=== PATIENT | male | born 1930 | race Caucasian/White ===

== ENCOUNTER 2017-12-22 18:14 | Emergency (ER) | payer MEDICARE, BC ==
[2017-12-22] MEDS ORDERED: ALBUTEROL SULFATE (0.083%) 2.5 MG/3 ML NEB INH ONE (18:41)
--- NOTE | 2017-12-22 18:47 | Emergency Department Record ---
History of Present Illness - General Chief Complaint: Cough Stated Complaint: PRODUCTIVE COUGH Time Seen by Provider: 12/22/17 18:27 Source: Patient Mode of Arrival: Ambulatory Limitations: No limitations - History of Present Illness Initial Comments: pt was taking 8 vitamins this am when he thought he aspirated one. he has been coughing ever since and having difficulty breathing MD Complaint: Shortness of breath Onset/Timin Severity: Moderate Severity scale (1-10): 1 Consistency: Constant Improves With: Nothing Worsens With: Coughing, Inspiration Known History Of: Recurrent pneumonia Context: Choking/aspiration - Related Data Allergies Allergy/AdvReac Type Severity Reaction Status Date / Time iodine Allergy Unknown HYPERSENSIT Unverified 12/22/17 18:33 [facility] Latex Allergy: Allergy Unknown HYPERSENSIT Uncoded 12/22/17 18:33 [facility] Travel Screening - Travel/Exposure Within Last 30 Days Have you traveled within the last 30 days?: No - Travel/Exposure Within Last Year Have you traveled outside the [place] in the last year?: No - Additonal Travel Details Have you been exposed to anyone with a communicable illness?: No - Travel Symptoms Symptom Screening: None - Additional Travel Comment Additional Travel/Exposure Comment: Pt states when he took all of his medications this am around 9 am her choked on the water. Pt thinks he aspirated on the pills and water. Review of Systems Reviewed: No additional complaints except as noted below Constitutional: Reports: As per HPI. Denies: Chills, Fever, Malaise, Night sweats, Weakness, Weight change Eyes: Reports: As per HPI. Denies: Eye discharge, Eye pain, Photophobia, Vision change ENT: Reports: As per HPI. Denies: Congestion, Dental pain, Ear pain, Epistaxis , Hearing loss, Throat pain Respiratory: Reports: As per HPI, Cough, Dyspnea. Denies: Hemoptysis, Stridor, Wheezes Cardiovascular: Reports: As per HPI. Denies: Arrhythmia, Chest pain, Dyspnea on exertion, Edema, Murmurs, Orthopnea, Palpitations, Paroxysmal nocturnal dyspnea, Rheumatic Fever, Syncope Endocrine: Reports: As per HPI. Denies: Fatigue, Heat or cold intolerance, Polydipsia, Polyuria Gastrointestinal: Reports: As per HPI. Denies: Abdominal pain, Constipation, Diarrhea, Hematemesis, Hematochezia, Melena, Nausea, Vomiting Genitourinary: Reports: As per HPI. Denies: Dysuria, Frequency, Hematuria, Incontinence, Retention, Testicular pain, Testicular mass, Urgency Musculoskeletal: Reports: As per HPI. Denies: Arthralgia, Back pain, Gout, Joint swelling, Myalgia, Neck pain Skin: Reports: As per HPI. Denies: Bruising, Change in color, Change in hair/ nails, Lesions, Pruritus, Rash Neurological: Reports: As per HPI. Denies: Abnormal gait, Confusion, Headache, Numbness, Paresthesias, Seizure, Tingling, Tremors, Vertigo, Weakness Psychiatric: Reports: As per HPI. Denies: Anxiety, Auditory hallucinations, Depression, Homicidal thoughts, Suicidal thoughts, Visual hallucinations Hematological/Lymphatic: Reports: As per HPI. Denies: Anemia, Blood Clots, Easy bleeding, Easy bruising, Swollen glands Past Medical History - SOCIAL HISTORY Smoking Status: Former smoker Alcohol Use: None Drug Use: None - RESPIRATORY Hx Respiratory Disorders: Yes Hx Pneumonia: Yes Hx Sleep Apnea: Yes Hx of CPAP: Yes - CARDIOVASCULAR Hx Cardio Disorders: No - NEURO Hx Neuro Disorders: No - GI Hx GI Disorders: No - Hx Genitourinary Disorders: Yes Hx Kidney Stones: Yes Hx Prostate Problems: Yes - ENDOCRINE Hx Endocrine Disorders: No - MUSCULOSKELETAL Hx Musculoskeletal Disorders: Yes Hx Arthritis: Yes Hx Back Injury: Yes (pinched nerve, 3 herniated disk) - PSYCH Hx Psych Problems: No - HEMATOLOGY/ONCOLOGY Hx Hematology/Oncology Disorders: No Family Medical History Any Significant Family History?: Yes Family Hx Comment (NOT TO BE USED IN PLACE OF ITEMS BELOW): low blood sugar in family Hx Cancer: Mother Hx Heart Disease: Father Physical Exam - General General Appearance: Alert, Oriented x3, Cooperative, Mild distress - Head Head exam: Normal inspection - Eye Eye exam: Normal appearance, PERRL, EOMI Pupils: Normal accommodation - ENT ENT exam: Normal exam, Mucous membranes moist, Normal external ear exam, Normal orophraynx Ear exam: Normal external inspection. negative: External canal tenderness Nasal Exam: Normal inspection. negative: Discharge, Sinus tenderness Mouth exam: Normal external inspection, Tongue normal Teeth exam: Normal inspection. negative: Dental caries Throat exam: Normal inspection. negative: Tonsillar erythema, Tonsillar exudate - Neck Neck exam: Normal inspection, Full ROM. negative: Tenderness - Respiratory Respiratory exam: Normal lung sounds bilaterally. negative: Respiratory distress - Cardiovascular Cardiovascular Exam: Regular rate, Normal rhythm, Normal heart sounds - GI/Abdominal GI/Abdominal exam: Soft, Normal bowel sounds. negative: Tenderness - Rectal Rectal exam: Deferred - exam: Deferred - Extremities Extremities exam: Normal inspection, Full ROM, Normal capillary refill. negative: Tenderness - Back Back exam: Reports: Normal inspection, Full ROM. Denies: Muscle spasm, Rash noted, Tenderness - Neurological Neurological exam: Alert, CN II-XII intact, Normal gait, Oriented X3 - Psychiatric Psychiatric exam: Normal affect, Normal mood - Skin Skin exam: Dry, Intact, Normal color, Warm Course Vital Signs 12/22/17 18:20 Temperature 97.3 F L Pulse Rate 83 Respiratory 20 Rate Blood Pressure 127/92 Pulse Ox 99 - Reevaluation(s) Reevaluation #1: 12/22/17 21:17 pt feels much better Medical Decision Making - Lab Data Result diagrams: 12/22/17 18:55 12/22/17 18:55 Disposition Disposition: Discharge Clinical Impression: Choking episode Aspiration into respiratory tract Qualifiers: Encounter type: initial encounter Qualified Code(s): T17.908A - Unspecified foreign body in respiratory tract, part unspecified causing other injury, initial encounter Disposition: Home, Self-Care Condition: (1) Good Instructions: Aspiration Precautions (ED) Additional Instructions: follow up with family doctor. return sooner if worse. Forms: Patient Portal Access Quality - Quality Measures Quality Measures: N/A - Blood Pressure Screening Does Patient Have Any of the Following: No Blood Pressure Classification: Hypertensive Reading Systolic Measurement: 127 Diastolic Measurement: 92 Screening for High Blood Pressure: < Pre-Hypertensive BP, F/U Documented > [ G8950] Pre-Hypertensive Follow-up Interventions: Follow-up with rescreen every year.
[2017-12-22 19:05] LABS: BASO % 0.4 % (0-6); EOS % 2.7 % (0-6); GRAN % 65.9 % (47-80); HEMATOCRIT 38.9 % (42.0-52.0); HEMOGLOBIN 12.1 gm/dl (14.0-18.0); LYMPH % 19.7 % (16-45); MEAN CELL VOLUME 97.7 fl (81-97); MEAN CORPUSCULAR HEMOGLOBIN 30.4 pg (27-33); MEAN CORPUSCULAR HGB CONC 31.1 g/dl (32-36); MEAN PLATELET VOLUME 9.4 fl (7.4-10.4); MONO % 11.3 % (0-9); PLATELET COUNT 226 K/uL (130-400); RED BLOOD COUNT 3.98 M/uL (4.40-5.70); RED CELL DISTRIBUTION WIDTH 13.5 % (11.5-14.5); WHITE BLOOD COUNT W/O DIFF 5.1 K/uL (4.2-12.2)
[2017-12-22 19:14] LABS: BLOOD UREA NITROGEN 29 mg/dL (8-23); CREATININE 0.9 mg/dL (0.7-1.2); EST GLOMERULAR FILTRATION RATE > 60 mL/min
[2017-12-22 19:17] LABS: GLUCOSE,RANDOM 132 mg/dL (74-109)
[2017-12-22] MEDS ORDERED: 0.9 % SODIUM CHLORIDE 1,000 ML BAG IV ONE (19:46)
--- NOTE | 2017-12-23 22:54 | CT SCAN REPORT ---
EXAM: CT SCAN CHEST W CONTRAST HISTORY: COUGH. TECHNIQUE: Sequential axial images were obtained from the thoracic inlet through the bilateral adrenal glands after intravenous administration of 100 mL of Omnipaque-300 contrast material. FINDINGS: The mediastinal vasculature enhances normally. There are mildly prominent mediastinal lymph nodes. There is underlying emphysema. There is a calcified granuloma in the left lower lobe. No pleural effusion is appreciated. There are nonspecific low-density lesions in the left lobe of the liver. There are nonspecific cystic lesions in both kidneys. IMPRESSION: 1. CALCIFIED GRANULOMA LEFT LOWER LOBE. 2. MILDLY PROMINENT MEDIASTINAL LYMPH NODES. NO INFILTRATE. MILD UNDERLYING EMPHYSEMA. JOB NUMBER: [id number] [facility]
== END 2017-12-22 21:31 | disposition home or self-care (01) ==
LOC: ER 18:14
DX: T17.908A Unspecified foreign body in respiratory tract, part unspecified causing other injury, initial encounter (principal); R09.89 Other specified symptoms and signs involving the circulatory and respiratory systems; R05 Cough; R06.02 Shortness of breath; F17.210 Nicotine dependence, cigarettes, uncomplicated
CPT/HCPCS: 99284 ×2; 96360; 85025; 80048; 71260; 94640; Q9967; J7030; J7613

== ENCOUNTER 2018-03-21 10:39 | Emergency (ER) | payer MEDICARE, BC ==
--- NOTE | 2018-03-21 10:57 | Emergency Department Record ---
History of Present Illness - General Chief complaint: Lower Extremity Pain Stated complaint: HIP PAIN Time Seen by Provider: 03/21/18 10:49 Source: Patient Mode of Arrival: Ambulatory Limitations: No limitations - History of Present Illness Initial comments: The patient is here due to R hip and pelvis pain for 2 weeks. He fell almost 2 weeks ago while mowing the yard and landed on his R buttock. Since he has had R groin and buttock pain. The patient is able to ambulate with pain and it seems to be getting mildly worse. He denies any SAGASTUME, neck pain, CP, SOB or AP. MD Complaint: Joint pain Onset/Timin -: Week(s) Severity scale (1-10): 6 Quality: Aching Consistency: Constant Improves with: Immobilization Worsens with: Walking, Weight bearing Associated Symptoms: Denies other symptoms - Related Data Previous Rx's Medication Instructions Recorded Lidocaine Patch [Lidoderm] 1 ea TOP DAILY #10 patch 03/21/18 Allergies Allergy/AdvReac Type Severity Reaction Status Date / Time iodine Allergy Unknown HYPERSENSIT Verified 03/21/18 10:49 [facility] Travel Screening - Travel/Exposure Within Last 30 Days Have you traveled within the last 30 days?: No Review of Systems Constitutional: Denies: Chills, Fever Past Medical History - SOCIAL HISTORY Smoking Status: Former smoker Alcohol Use: None Drug Use: None - RESPIRATORY Hx Respiratory Disorders: Yes Hx Pneumonia: Yes Hx Sleep Apnea: Yes Hx of CPAP: Yes - CARDIOVASCULAR Hx Cardio Disorders: No - NEURO Hx Neuro Disorders: No - GI Hx GI Disorders: No - Hx Genitourinary Disorders: Yes Hx Kidney Stones: Yes Hx Prostate Problems: Yes - ENDOCRINE Hx Endocrine Disorders: No - MUSCULOSKELETAL Hx Musculoskeletal Disorders: Yes Hx Arthritis: Yes Hx Back Injury: Yes (pinched nerve, 3 herniated disk) - PSYCH Hx Psych Problems: No - HEMATOLOGY/ONCOLOGY Hx Hematology/Oncology Disorders: No Family Medical History Any Significant Family History?: Yes Family Hx Comment (NOT TO BE USED IN PLACE OF ITEMS BELOW): low blood sugar in family Hx Cancer: Mother Hx Heart Disease: Father Physical Exam - General General Appearance: Alert, Oriented x3, Cooperative, No acute distress - Head Head exam: Atraumatic, Normocephalic, Normal inspection - Eye Eye exam: Normal appearance, PERRL - Respiratory Respiratory exam: Normal lung sounds bilaterally. negative: Respiratory distress - Cardiovascular Cardiovascular Exam: Regular rate, Normal rhythm, Normal heart sounds - GI/Abdominal GI/Abdominal exam: Soft, Normal bowel sounds. negative: Tenderness - Extremities Extremities exam: Normal inspection, Normal capillary refill, Tenderness (There is mild R lateral hip pain with palpation.), Other (The R leg is NVI with normal distal pulses.). negative: Calf tenderness, Full ROM (There is decreased full ROM of the R hip due to pain.), Joint swelling, Pedal edema Course Vital Signs 03/21/18 10:45 Temperature 97.4 F L Pulse Rate 70 Respiratory 18 Rate Blood Pressure 112/63 Pulse Ox 98 - Reevaluation(s) Reevaluation #1: The patient is doing OK at this time. I did discuss the neg xrays with the patient and family and the need for F/U. We will prescribe Lidoderm patches for the patient. He was up walking at discharge with no problems or limping. 03/21/18 12:06 03/21/18 13:22 Medical Decision Making - Data Complexity MDM Data: X-Ray Ordered and/or Reviewed - Radiology Data Radiology results: Report reviewed (R hip: Neg per Rad for any acute changes.) Disposition Disposition: Discharge Clinical Impression: Hip pain, right Disposition: Home, Self-Care Condition: (2) Stable Instructions: Hip Pain (ED) Additional Instructions: Please use Tylenol for pain every 6 hours and use the Lidoderm as directed. Please see your family doctor next week for recheck. Return to the ER for any worsening symptoms and do not mow the lawn or go in the basement for a week. Prescriptions: Lidocaine Patch [Lidoderm] 1 ea TOP DAILY #10 patch Forms: Patient Portal Access Time of Disposition: 12:09 Quality - Quality Measures Quality Measures: N/A - Blood Pressure Screening View Details: Yes Does Patient Have Any of the Following: No Blood Pressure Classification: Normal BP Reading Systolic Measurement: 112 Diastolic Measurement: 63 Screening for High Blood Pressure: < Normal BP, F/U Not Required > [G8783]
[2018-03-21] MEDS ORDERED: LIDOCAINE 5% PATCH TOP ONE (12:05)
--- NOTE | 2018-03-23 21:04 | RADIOLOGY REPORT ---
EXAM: HIP,UNILAT, 2-3 VIEW RIGHT HISTORY: PATIENT FELL TWO WEEKS AGO WITH RIGHT HIP PAIN. TECHNIQUE: AP pelvis, AP lateral right hip. COMPARISON: No prior pelvis or right hip series. ENCOUNTER: Initial. FINDINGS: There is mild degenerative arthritis right hip. No definite fracture or dislocation of the right hip evident. Diffuse osteopenia consistent with osteoporosis. Advanced degenerative arthritis left hip. Prominent degenerative change lower lumbar spine as well, particularly on the left. IMPRESSION: 1. OSTEOPOROSIS. 2. MILD DEGENERATIVE ARTHRITIS RIGHT HIP. MORE SO LEFT HIP. 3. NO FRACTURE OF THE RIGHT HIP EVIDENT. 4. DEGENERATIVE CHANGE LOWER LUMBAR SPINE WELL. JOB NUMBER: [id number] [facility]
== END 2018-03-21 12:32 | disposition home or self-care (01) ==
LOC: ER 10:39
DX: G89.11 Acute pain due to trauma (principal); M25.551 Pain in right hip; W18.30XA Fall on same level, unspecified, initial encounter; Y93.H9 Activity, other involving exterior property and land maintenance, building and construction; Z87.891 Personal history of nicotine dependence
CPT/HCPCS: 99283

== ENCOUNTER 2018-10-02 23:53 | Emergency (ER) | payer MEDICARE, BC ==
[2018-10-03] MEDS ORDERED: 0.9 % SODIUM CHLORIDE 1000ML 500 ML IV SCH (00:15)
[2018-10-03] MEDS ORDERED: ONDANSETRON HCL IV 4 MG/2 ML VIAL IVP ONE (00:15)
[2018-10-03] MEDS ORDERED: FENTANYL PF 100MCG/2ML VIAL IVP ONE (00:15)
[2018-10-03 00:25] LABS: HEMATOCRIT 37.8 % (42.0-52.0); HEMOGLOBIN 12.1 gm/dl (14.0-18.0); MEAN CELL VOLUME 97.4 fl (81-97); MEAN CORPUSCULAR HEMOGLOBIN 31.1 pg (27-33); MEAN PLATELET VOLUME 9.2 fl (7.4-10.4); PLATELET COUNT 224 K/uL (130-400); RED BLOOD COUNT 3.88 M/uL (4.40-5.70); RED CELL DISTRIBUTION WIDTH 13.4 % (11.5-14.5); WHITE BLOOD COUNT W/O DIFF 8.1 K/uL (4.2-12.2)
--- NOTE | 2018-10-03 00:34 | Emergency Department Record ---
History of Present Illness - General Chief Complaint: Abdominal Pain Stated Complaint: ABDOMINAL PAIN Time Seen by Provider: 10/03/18 00:11 Source: Patient Mode of Arrival: Ambulatory Limitations: No limitations - History of Present Illness Initial Comments: 88 yo male presents to ED for evaluation of right sided abdominal pain symptoms that began approximately 3 hours ago. Patient reports simialr symptoms several weeks ago that resolved earlier. Patient denies fevers, chills, or vomiting symptoms. Patient denies previous anu or appendectomy. Patient denies loose stools or blood in the stool. Daughter denies health problems other than HTN. MD Complaint: Abdominal pain Onset/Timin -: Hour(s) Location: RLQ Radiation: None Migration to: No migration Severity: Severe Severity scale (1-10): 8 Quality: Aching Consistency: Constant Improves With: Nothing Worsens With: Nothing Associated Symptoms: Denies other symptoms - Related Data Home Medications Medication Instructions Recorded Confirmed Last Taken Donepezil HCl 5 mg PO DAILY 10/03/18 10/03/18 10/02/18 Ketoconazole 1 ml TD DAILY 10/03/18 10/03/18 10/02/18 Allergies Allergy/AdvReac Type Severity Reaction Status Date / Time iodine Allergy Unknown HYPERSENSIT Verified 03/21/18 10:49 [facility] Travel Screening - Travel/Exposure Within Last 30 Days Have you traveled within the last 30 days?: No Review of Systems Constitutional: Denies: Chills, Fever, Malaise, Night sweats Eyes: Denies: Eye discharge, Eye pain ENT: Denies: Congestion, Ear pain, Epistaxis Respiratory: Denies: Cough, Dyspnea Cardiovascular: Denies: Chest pain, Dyspnea on exertion Endocrine: Denies: Fatigue, Heat or cold intolerance Gastrointestinal: Reports: Abdominal pain. Denies: Nausea, Vomiting Genitourinary: Denies: Incontinence, Retention Musculoskeletal: Denies: Arthralgia, Back pain, Gout, Joint swelling Skin: Denies: Bruising, Change in color Neurological: Denies: Abnormal gait, Confusion, Headache, Seizure Psychiatric: Denies: Anxiety Hematological/Lymphatic: Denies: Anemia, Blood Clots Past Medical History - SOCIAL HISTORY Smoking Status: Former smoker Alcohol Use: None Drug Use: None - RESPIRATORY Hx Respiratory Disorders: Yes Hx Pneumonia: Yes Hx Sleep Apnea: Yes Hx of CPAP: Yes - CARDIOVASCULAR Hx Cardio Disorders: No - NEURO Hx Neuro Disorders: Yes Hx Dementia: Yes - GI Hx GI Disorders: No - Hx Genitourinary Disorders: Yes Hx Kidney Stones: Yes Hx Prostate Problems: Yes - ENDOCRINE Hx Endocrine Disorders: No - MUSCULOSKELETAL Hx Musculoskeletal Disorders: Yes Hx Arthritis: Yes Hx Back Injury: Yes (pinched nerve, 3 herniated disk) - PSYCH Hx Psych Problems: No - HEMATOLOGY/ONCOLOGY Hx Hematology/Oncology Disorders: No Family Medical History Any Significant Family History?: Yes Family Hx Comment (NOT TO BE USED IN PLACE OF ITEMS BELOW): low blood sugar in family Hx Cancer: Mother Hx Heart Disease: Father Physical Exam - General General Appearance: Alert, Oriented x3, Cooperative, Mild distress Limitations: No limitations - Head Head exam: Atraumatic, Normocephalic, Normal inspection Head exam detail: negative: Abrasion, Contusion, Ogden's sign, General tenderness, Hematoma, Laceration - Eye Eye exam: Normal appearance. negative: Conjunctival injection, Periorbital swelling, Periorbital tenderness, Scleral icterus - ENT Ear exam: negative: Auricular hematoma, Auricular trauma Nasal Exam: negative: Active bleeding, Discharge, Dried blood, Foreign body Mouth exam: negative: Drooling, Laceration, Tongue elevation - Neck Neck exam: Normal inspection. negative: Meningismus, Tenderness - Respiratory Respiratory exam: Normal lung sounds bilaterally. negative: Rales, Respiratory distress, Rhonchi, Stridor - Cardiovascular Cardiovascular Exam: Regular rate, Normal rhythm, Normal heart sounds - GI/Abdominal GI/Abdominal exam: Soft, Tenderness (TTP RUQ, RLQ on examination, no guarding or peritoneal signs are present.). negative: Rebound, Rigid - Rectal Rectal exam: Deferred - exam: Deferred - Extremities Extremities exam: Normal inspection. negative: Pedal edema, Tenderness - Back Back exam: Denies: CVA tenderness (R), CVA tenderness (L) - Neurological Neurological exam: Alert, Normal gait, Oriented X3 - Psychiatric Psychiatric exam: Normal affect, Normal mood - Skin Skin exam: Normal color. negative: Abrasion Type of lesion: negative: abrasion Course Vital Signs 10/03/18 00:02 Temperature 97.7 F Pulse Rate [ 56 L Pulse Ox Probe] Respiratory 20 Rate Blood Pressure 124/64 [Left Arm] Pulse Ox 94 L - Reevaluation(s) Reevaluation #1: 10/03/18 00:47 Laboratory studies were reviewed: Hgb 12.1 LA 1.8 UA pending. Labs are otherwise grossly unremarkable for an acute process. Reevaluation #2: 10/03/18 01:36 Patient is back from CT imaging, reports improvement in his pain symptoms. Patient has been unable to urinate since arriving to the ED, will try to obtain UA in 20-30 minutes. Reevaluation #3: 10/03/18 01:58 CT Abdomen and Pelvis: 6 mm stone distal right ureter with resultant moderate right sided hydronephrosis. Calicified pleural plaque left lung base. Enlarged prostate measuring 5.5 cm in diameter. Diverticulosis. Trace FF. Moderate aortic-iliac athersclerotic disease. Reevaluation #4: 10/03/18 02:10 UA reviewed, no evidence for infection. Following discussion with the patient and his daughter, would prefer transfer to [facility] for urologic evaluation. Dr. Izquierdo paged for consultation. 10/03/18 02:12 Case was discussed with Dr. Izquierdo, will accept transfer for further evaluation. Patient and his daughter were updated on the plan of care. Medical Decision Making - Lab Data Result diagrams: 10/03/18 00:10 10/03/18 00:10 Disposition Disposition: Transfer Clinical Impression: Hydronephrosis with obstructing calculus Disposition: Acute Care Hospital Transfer Transfer To: [facility] Reason For Transfer: Urologic consultation, pain control Accepting Physician: Timbo Time Discussed w/Accepting Physician: 02:13 Condition: (2) Stable Forms: Patient Portal Access Time of Disposition: 02:13 Quality - Quality Measures Quality Measures: N/A - Blood Pressure Screening Does Patient Have Any of the Following: No Blood Pressure Classification: Pre-Hypertensive BP Reading Systolic Measurement: 134 Diastolic Measurement: 68 Screening for High Blood Pressure: < Pre-Hypertensive BP, F/U Documented > [ G8950] Pre-Hypertensive Follow-up Interventions: Referral to alternative/primary care provider.
[2018-10-03 00:37] LABS: BLOOD UREA NITROGEN 26 mg/dL (8-23); CREATININE 0.9 mg/dL (0.7-1.2); EST GLOMERULAR FILTRATION RATE > 60 mL/min
[2018-10-03 00:38] LABS: TOTAL PROTEIN 6.7 g/dL (6.6-8.7)
[2018-10-03 00:40] LABS: GLUCOSE,RANDOM 126 mg/dL (74-109)
[2018-10-03 00:42] LABS: ALT/SGPT 13 U/L (<41)
[2018-10-03 00:43] LABS: ALB/GLOB RATIO 1.2 (1.1-1.8); ALBUMIN 3.6 g/dL (4.0-5.0); ALKALINE PHOSPHATASE 94 U/L (40-129); AST/SGOT 27 U/L (10.0-50.0)
[2018-10-03 01:55] LABS: URINE APPEARANCE CLEAR; URINE BILIRUBIN NEGATIVE (NEGATIVE); URINE BLOOD LARGE (NEGATIVE); URINE COLOR YELLOW; URINE GLUCOSE (UA) NEGATIVE (NEGATIVE); URINE KETONE TRACE (NEGATIVE); URINE LEUKOCYTE ESTERASE NEGATIVE (NEGATIVE); URINE NITRITE NEGATIVE (NEGATIVE); URINE PROTEIN NEGATIVE (NEGATIVE); URINE UROBILINOGEN 0.2 E.U./dL (0.20 - 1.00)
[2018-10-03 02:02] LABS: URINE WBC 0 - 2 (0-2/hpf)
[2018-10-03 02:03] LABS: URINE MUCUS LIGHT; URINE RBC 16 - 25 (NONE SEEN); URINE YEAST FEW
[2018-10-03 02:04] LABS: URINE EPITHELIAL CELLS 0 - 2 (FEW)
[2018-10-03] MEDS ORDERED: KETOROLAC 30 MG/ML VIAL IVP ONE (02:09)
--- NOTE | 2018-10-04 10:00 | CT SCAN REPORT ---
EXAM: CT OF THE ABDOMEN AND PELVIS WITH CONTRAST HISTORY: ABDOMINAL PAIN. TECHNIQUE: Sequential axial images were obtained from the diaphragms through the ischiorectal fossa after intravenous administration of 100 ml of Omnipaque 300 contrast material. FINDINGS: There is scar tissue in both lung bases. There are calcified pleural plaques in the left lung base. There is a benign appearing cyst in the left lobe of the liver. There are benign renal cysts present. The pancreas and spleen appears normal. The adrenal glands appear normal. There is a 6 mm obstructing stone in the distal right ureter producing moderate right hydronephrosis/hydroureter. There is a nonobstructing calculus in the superior pole of the right kidney. The small bowel appears normal. The appendix is not well visualized. No secondary findings suggestive of acute appendicitis. Diverticulosis without evidence of diverticulitis. Prostate gland hyperplasia. The urinary bladder appears normal. Multilevel degenerative change of the lumbar spine. Postop laminectomy surgical change at L4. IMPRESSION: 1. OBSTRUCTING 6 MM STONE IN THE DISTAL RIGHT URETER WITH MILD TO MODERATE RIGHT HYDRONEPHROSIS AND HYDROURETER. 2. CHRONIC CHANGES IN BOTH LUNG BASES WITH CALCIFIED PLEURAL PLAQUE IN THE LEFT LUNG BASE. 3. NONOBSTRUCTING CALCULI IN THE SUPERIOR POLE OF THE RIGHT KIDNEY. 4. PROSTATE GLAND HYPERPLASIA. 5. DIVERTICULOSIS WITHOUT EVIDENCE OF DIVERTICULITIS. [facility]BER: [id number] [facility]
== END 2018-10-03 04:41 | disposition short-term general hospital (02) ==
LOC: ER 23:53
DX: N13.2 Hydronephrosis with renal and ureteral calculous obstruction (principal); Z87.891 Personal history of nicotine dependence; Z87.442 Personal history of urinary calculi
CPT/HCPCS: 74177; 80053; 81001; 83605; 83690; 85027; 96361; 96374; 96375; 99285; J1885; J2405; J7030